=== PATIENT | male | born 1995 | race Caucasian/White ===

== ENCOUNTER → 2016-08-25 | Outpatient (CLI) | payer BC ==
--- NOTE | 2016-08-25 13:23 | FL ---
Modified barium swallow HISTORY: Dysphagia Real-time fluoroscopy was performed in the lateral projection over the cervical esophagus during serjio stion of barium mixed with liquids and solids. The swallowing mechanism is normal. No laryngeal penetration or aspiration. 1.15 minutes fluoroscopy time IMPRESSION: Normal modified barium swallow
== END ==
LOC: RADFLMAIN 11:45
PROVIDERS: ATTEND Otolaryngology
DX: R13.10 Dysphagia, unspecified (principal)
CPT/HCPCS: 74230

== ENCOUNTER 2016-12-13 13:05 | Day surgery (SDC) | payer BC ==
[2016-12-09 16:34] VITALS: BMI 23.2
[~2016-12-13 13:05] MED LIST: LIDOCAINE 1% 20 ML VIAL (10MG/ML) FOR IV START INTRADERMA PRN
[2016-12-13 13:42] VITALS: RESP 16; TEMP 98.5
[2016-12-13] MEDS: LACTATED RINGERS 1,000 ML IV SCH ×2 (13:49→14:23)
[2016-12-13] MEDS ORDERED: LIDOCAINE 1% INJ 10MG/ML (20 ML MDV) ONE (14:25)
[2016-12-13] MEDS ORDERED: PROPOFOL 10 MG/ML 20 ML VIAL IV ONE (14:25)
--- NOTE | 2016-12-13 15:13 | P.PCN ---
Date of Procedure: 12/13/16 Preoperative Diagnosis: Postoperative Diagnosis: Procedure(s) Performed: Procedure: Esophagogastroduodenoscopy and biopsy. Preoperative diagnosis: Dysphagia of 2 years duration. Postoperative diagnosis: 1. Hiatal hernia with evidence of esophagitis and corrugation of the esophagus raising the possibility of eosinophilic esophagitis in addition to reflux esophagitis. 2. Distal esophageal nonobstructing stricture. 3. Mild gastritis. 4. Multiple biopsies obtained from the duodenum, antrum and esophagus. Preparation and sedation: Were provided by anesthesia. Brief clinical history: The patient is a 21-year-old male who I have evaluated in the office recently regarding issues with dysphagia to certain dry foods that he has been having for around 2 years. The patient had upper endoscopy 18 months to 2 years prior and was given acid suppressive therapy for 1 month or so which he said did not help. This evaluation is to assess for esophagitis including eosinophilic esophagitis or other pathology. Procedure: With the patient on his left lateral decubitus position and after informed consent and adequate sedation, I passed the Olympus-GIF 160 video upper endoscope through the cricopharyngeus down the esophagus. GE junction was around 40 cm from the incisors and there was a sliding hiatal hernia measuring around 2 cm. The endoscope was then passed into the stomach which was insufflated with air and inspected in detail including the retroflex view in the cardia. Finally the endoscope was passed through the pylorus into the duodenum. Pyloric channel, duodenal bulb, post bulbar area and descending duodenum did not show any obvious abnormalities. The stomach showed mottling and erythema in the antrum but no ulcers or erosions. The esophagus showed corrugations and distally, around the area of the hiatal hernia, there were multiple linear erosions and superficial ulcerations and a nonobstructing short stricture. There was some whitish non sticky exudates in the esophagus probably representing food debris as opposed to an infectious etiology. I obtained biopsies in the distal esophagus and in the proximal esophagus before the endoscope was withdrawn. Biopsies were also obtained from the duodenum and antrum. The patient tolerated the procedure well. Plan: I summarized the findings to the patient. Will treat intensively for acid reflux while awaiting the biopsy results. I will see him in the office in 2 months or so and make further plans based on his course and biopsy results. I will keep you updated on his progress. Implants: Indications for Procedure: Operative Findings: Description of Procedure:
[2016-12-13 15:23] VITALS: BP 112/72; PULSE 77
== END 2016-12-13 15:29 | disposition home or self-care (01) ==
LOC: ORWHC2ENDO 13:05
DX: K21.0 Gastro-esophageal reflux disease with esophagitis (principal); K44.9 Diaphragmatic hernia without obstruction or gangrene; K29.50 Unspecified chronic gastritis without bleeding; K22.2 Esophageal obstruction; K22.10 Ulcer of esophagus without bleeding
CPT/HCPCS: 88305; 88342; 43239; J2001; J2704; 88312

== ENCOUNTER → 2018-07-16 | Outpatient (CLI) | payer BC ==
--- NOTE | 2018-07-17 07:47 | XR ---
EXAMINATION TYPE: XR chest 2V DATE OF EXAM: 07/16/2018 COMPARISON: 01/12/2000 HISTORY: Cough for 2 days TECHNIQUE: Frontal and lateral views of the chest are obtained. FINDINGS: There is no focal air space opacity, pleural effusion, or pneumothorax seen. The cardiac silhouette size is within normal limits. The osseous structures are intact. IMPRESSION: No acute cardiopulmonary process.
== END | disposition home or self-care (01) ==
LOC: RADXRMAIN 16:49
PROVIDERS: ATTEND Physician Assistant
DX: R05 Cough (principal)
CPT/HCPCS: 71046